=== PATIENT | female | born 1990 | race Caucasian/White ===

== ENCOUNTER 2016-10-29 03:44 | Emergency (ER) | payer SELFPAY ==
[~2016-10-29 03:44] MED LIST: IBUP400 PO; NORC10TA2 PO
[2016-10-29 03:59] VITALS: BP 145/75; PULSE 125; RESP 14; TEMP 98.6; O2SAT 99
--- NOTE | 2016-10-29 04:27 | PD ---
HPI Chief Complaint: OD/ Ingestion Time Seen by Provider: 04:26 Travel History International Travel<30 days: No Contact w/Intl Traveler<30days: No Traveled to known affect area: No History of Present Illness HPI The patient is a 26-year-old female, heroin addict, who apparently got out of skilled nursing yesterday and started using heroin IV. She is at her friend's house, unconscious with a needle in her arm and a spoon in her hand. She was given 0.4 mg of naloxone by [facility] and she woke up. She is now alert and oriented 3. She feels dehydrated. She denies any fever. PFSH Past Medical History Asthma: Yes Blood Disorders: No Anxiety: Yes Cancer: No Cardiovascular Problems: No Diminished Hearing: No Endocrine: No Genitourinary: No Headaches: Yes Immune Disorder: No Musculoskeletal: Yes (L HIP) Neurologic: Yes Psychiatric: Yes Respiratory: Yes (ASTHMA) Tetanus Vaccination: < 5 Years Influenza Vaccination: No ?: Unknown : 4 Para: 1 Miscarriage: 3 : 1 Past Surgical History Other Surgery: Yes (BONE BIOPSY) Social History Alcohol Use: No Tobacco Use: Yes (1/2 PPD) Substance Use: Yes (HEROINE) Allergies-Medications (Allergen,Severity, Reaction): Coded Allergies: No Known Allergies (Verified , 10/29/16) Reported Meds & Prescriptions Reported Meds & Active Scripts Active Motrin 400 mg Tab (Ibuprofen) 400 Mg Tab 400 Mg PO Q8HR PRN [place] 10-325 mg (Hydrocodone-Acetaminophen 10-325 mg) 1 Tab 1 Tab PO Q4H PRN Review of Systems Except as stated in HPI: all other systems reviewed are Neg Physical Exam Narrative GENERAL: The patient is alert, moderately dehydrated appearing, oriented 3 in no apparent distress. Her vital signs show heart rate of 125 and blood pressure 145/ 75 but are otherwise normal. SKIN: Focused skin assessment warm/dry. Recent and old needle tracks are present on both forearms. No abscesses are present. HEAD: Atraumatic. Normocephalic. EYES: Pupils equal and round. No scleral icterus. No injection or drainage. ENT: No nasal bleeding or discharge. Mucous membranes pink and moist. NECK: Trachea midline. No JVD. CARDIOVASCULAR: Sinus tachycardia. No murmur appreciated. RESPIRATORY: No accessory muscle use. Clear to auscultation. Breath sounds equal bilaterally. GASTROINTESTINAL: Abdomen soft, non-tender, nondistended. Hepatic and splenic margins not palpable. No guarding or rebound. MUSCULOSKELETAL: No obvious deformities. No clubbing. No cyanosis. No edema. NEUROLOGICAL: Awake and alert. No obvious cranial nerve deficits. Motor grossly within normal limits. Normal speech. PSYCHIATRIC: Appropriate mood and affect; insight and judgment normal. Data Data Last Documented VS Vital Signs Date Time Temp Pulse Resp B/P Pulse Ox O2 Delivery O2 Flow Rate FiO2 10/29/16 03:59 98.6 125 14 145/75 99 Room Air Orders Complete Blood Count With Diff (10/29/16 04:29) Comprehensive Metabolic Panel (10/29/16 04:29) Urinalysis - C+S If Indicated (10/29/16 04:29) Beta Hcg (Quant/Titer) (10/29/16 04:29) Magnesium (Mg) (10/29/16 04:29) Drug Screen, Random Urine (10/29/16 04:29) Ondansetron Inj (Zofran Inj) (10/29/16 04:45) Sodium Chlor 0.9% 1000 Ml Inj (Ns 1000 M (10/29/16 04:31) Labs Laboratory Tests Test 10/29/16 04:30 White Blood Count 15.2 TH/MM3 Red Blood Count 4.59 MIL/MM3 Hemoglobin 14.1 GM/DL Hematocrit 42.6 % Mean Corpuscular Volume 92.8 FL Mean Corpuscular Hemoglobin 30.8 PG Mean Corpuscular Hemoglobin 33.2 % Concent Red Cell Distribution Width 14.2 % Platelet Count 269 TH/MM3 Mean Platelet Volume 9.7 FL Neutrophils (%) (Auto) 74.0 % Lymphocytes (%) (Auto) 21.0 % Monocytes (%) (Auto) 4.4 % Eosinophils (%) (Auto) 0.1 % Basophils (%) (Auto) 0.5 % Neutrophils # (Auto) 11.2 TH/MM3 Lymphocytes # (Auto) 3.2 TH/MM3 Monocytes # (Auto) 0.7 TH/MM3 Eosinophils # (Auto) 0.0 TH/MM3 Basophils # (Auto) 0.1 TH/MM3 CBC Comment AUTO DIFF MDM Medical Decision Making Medical Screen Exam Complete: Yes Emergency Medical Condition: Yes Medical Record Reviewed: Yes Differential Diagnosis Heroin overdose, chronic IV drug abuser, endocarditis, Narrative Course It is now 0512 and the patient has been observed here for approximately 4 hours since he was given Narcan and is alert and oriented 3. She is successfully drinking fluids and hydrating her self. Impression: Heroin overdose Plan: The patient is to discontinue heroin. She should follow-up with Narcotics Anonymous or use [facility]. Diagnosis Primary Impression: Heroin overdose Additional Impression: IV drug abuse Additional Instructions: It is necessary to follow-up with Narcotics Anonymous or [facility]. You need to get off heroin. Heroin and almost killed you tonight. Med/Other Pt SpecificInfo: Prescription(s) given Scripts Promethazine (Phenergan)25 Mg Tab25 Mg PO Q6H PRN (Nausea/Vomiting) #15 TAB Ref 0 Prov:Miller Qureshi MD 10/29/16 Disposition: 01 DISCHARGE HOME Condition: Stable Miller Qureshi MD Oct 29, 2016 04:27
[2016-10-29] MEDS ORDERED: SODIUM CHLOR 0.9% 1000 ML INJ 1,000 ML IV SCH (04:31)
[2016-10-29] MEDS ORDERED: ONDANSETRON HCL 4 MG/2 ML VIAL IVP ONE (04:45)
[2016-10-29 04:49] LABS: AUTOMATED NEUTROPHIL # 11.2 TH/MM3 (1.8-7.7); BASOPHIL # 0.1 TH/MM3 (0-0.2); BASOPHIL % 0.5 % (0.0-2.0); EOSINOPHIL % 0.1 % (0.0-4.0); HEMATOCRIT 42.6 % (35.0-46.0); LYMPHOCYTE # 3.2 TH/MM3 (1.0-4.8); MEAN CELL VOLUME 92.8 FL (80.0-100.0); MEAN CORPUSCULAR HEMOGLOBIN 30.8 PG (27.0-34.0); MEAN CORPUSCULAR HGB CONC 33.2 % (32.0-36.0); MONO % 4.4 % (0.0-8.0); PLATELET COUNT 269 TH/MM3 (150-450); RED BLOOD COUNT 4.59 MIL/MM3 (4.00-5.30); RED CELL DISTRIBUTION WIDTH 14.2 % (11.6-17.2); WHITE BLOOD COUNT 15.2 TH/MM3 (4.0-11.0)
[2016-10-29 04:50] LABS: HEMO FLAGS AUTO DIFF
[2016-10-29 05:16] LABS: ANION GAP 13 MEQ/L (5-15); AST (GOT) 96 U/L (15-37); BICARBONATE 22.4 MEQ/L (21.0-32.0); BLOOD UREA NITROGEN 21 MG/DL (7-18); CHLORIDE 105 MEQ/L (98-107); GLOMERULAR FILTRATION RATE 40 ML/MIN (>89); MAGNESIUM 2.5 MG/DL (1.5-2.5); SODIUM (NA) 140 MEQ/L (136-145)
[2016-10-29] MEDS ORDERED: PROM25TA5 PO (05:16)
[2016-10-29 05:21] LABS: ALKALINE PHOSPHATASE 106 U/L (45-117); ALT (GPT) 180 U/L (10-53); BETA HCG QUANT LESS THAN 1 MIU/ML (0-5); TOTAL BILIRUBIN ADULT 0.2 MG/DL (0.2-1.0)
[2016-10-29 06:53] LABS: BANDS 13 % (0-6); METAMYELOCYTES 2 % (0-1); NEUTROPHIL # MANUAL DIFF 11.2 TH/MM3 (1.8-7.7); PLATELET ESTIMATE SMEAR NORMAL (NORMAL); PLATELET MORPHOLOGY NORMAL (NORMAL); POLYS (SEG NEUTROPHILS) 59 % (16-70); SCAN/DIFF FINAL DIFF MANUAL; WBC DIFF SAMPLE 100
--- NOTE | 2016-11-02 08:17 | EKG ---
Date Performed: 10/29/2016 Time Performed: 03:48:14 PTAGE: 26 years EKG: SINUS TACHYCARDIA ARM LEADS REVERSED ABNORMAL RHYTHM ECG NO PREVIOUS TRACING DOCTOR: Rocco Davis Interpretating Date/Time 11/02/2016 08:15:33
== END 2016-10-29 05:38 | disposition home or self-care (01) ==
LOC: NEPC 03:44
DX: T40.1X1A Poisoning by heroin, accidental (unintentional), initial encounter (principal); R00.0 Tachycardia, unspecified
CPT/HCPCS: 80053; 83735; 84702; 85007; 85027; 93005; 96374; 99284; J2405; J7030